=== PATIENT | female | born 1980 | race Two or more races ===

== ENCOUNTER 2020-08-13 17:39 | Emergency (ER) | payer OTHER ==
[2020-08-13 17:46] VITALS: BP 123/62; PULSE 68; TEMP 97.9; BMI 24.3
[2020-08-13 19:07] LABS: BASO % 0.9 % (0-2.0); EOS % 2.6 % (0-4.5); HEMATOCRIT 42.6 % (32.4-45.2); HEMOGLOBIN 14.4 GM/dL (10.7-15.3); LYMPH % 41.1 % (8-40); MCH 31.9 pg (25.7-33.7); MCHC 33.8 g/dl (32.0-36.0); MEAN CELL VOLUME 94.4 fl (80-96); MEAN PLT VOLUME 10.4 fl (7.5-11.1); MONO % 8.2 % (3.8-10.2); NEUT % 47.2 % (42.8-82.8); PLATELET COUNT 260 K/MM3 (134-434); RBC 4.51 M/mm3 (3.60-5.2); RDW 13.2 % (11.6-15.6); WHITE BLOOD COUNT 5.7 K/mm3 (4.0-10.0)
[2020-08-13 19:21] LABS: POTASSIUM 4.2 mmol/L (3.5-5.1)
[2020-08-13 19:23] LABS: ALBUMIN 4.2 g/dl (3.4-5.0); BLOOD UREA NITROGEN 11.7 mg/dL (7-18)
[2020-08-13 19:26] LABS: CREATININE 0.8 mg/dL (0.55-1.3)
[2020-08-13 19:27] LABS: BILIRUBIN,TOTAL 0.5 mg/dL (0.2-1)
[2020-08-13 19:28] LABS: TOT PROT 7.7 g/dl (6.4-8.2)
[2020-08-13 20:19] LABS: HIV INTERPRETATION NEGATIVE (NEGATIVE)
== END 2020-08-13 18:49 | disposition home or self-care (01) ==
LOC: JER 17:39 → JERFT 17:39
DX: S61.032A Puncture wound without foreign body of left thumb without damage to nail, initial encounter (principal)
CPT/HCPCS: 36415; 80053; 85025; 86704; 86803; 87340; 87389; 99283-25

== ENCOUNTER 2020-10-20 21:58 | Emergency (ER) | payer OTHER ==
[2020-10-20 22:30] VITALS: BP 120/74; PULSE 72; TEMP 98.1; BMI 26.6
== END 2020-10-20 22:30 | disposition home or self-care (01) ==
LOC: JER 21:58
DX: Z20.822 Contact with and (suspected) exposure to COVID-19 (principal)
CPT/HCPCS: 99283-25; C9803; U0003; U0005

== ENCOUNTER 2020-11-08 08:14 | Emergency (ER) | payer OTHER ==
[2020-11-08 08:28] VITALS: BP 118/83; PULSE 87; TEMP 98; BMI 24.3
== END 2020-11-08 11:07 | disposition home or self-care (01) ==
LOC: JER 08:14
DX: J06.9 Acute upper respiratory infection, unspecified (principal); Z11.52 Encounter for screening for COVID-19
CPT/HCPCS: 99283-25; C9803; U0003; U0005

== ENCOUNTER 2020-11-25 10:03 | Emergency (ER) | payer OTHER ==
[2020-11-26 10:14] LABS: SARS-CoV-2 NAA Not Detected (Not Detected)
== END 2020-11-25 12:18 | disposition home or self-care (01) ==
LOC: JVIRT 10:03
DX: Z11.52 Encounter for screening for COVID-19 (principal)
CPT/HCPCS: C9803; G2251-GT; U0003; U0005

== ENCOUNTER 2020-11-30 11:19 | Emergency (ER) | payer OTHER | END 2020-11-30 15:13 | disposition home or self-care (01) | LOC: JVIRT 11:19 | DX: Z11.52 Encounter for screening for COVID-19 (principal) | CPT/HCPCS: C9803; G2251-GT; U0003; U0005 ==

== ENCOUNTER 2020-12-28 11:40 | Emergency (ER) | payer OTHER | END 2020-12-28 14:53 | disposition home or self-care (01) | LOC: JVIRT 11:40 | DX: Z11.52 Encounter for screening for COVID-19 (principal) | CPT/HCPCS: C9803; Q3014-GT; U0003; U0005 ==

== ENCOUNTER 2021-03-03 08:21 | Emergency (ER) | payer OTHER ==
[2021-03-03 08:37] VITALS: BMI 30.7
[2021-03-03] MEDS ORDERED: ONDANSETRON 4 MG/2 ML VIAL IVPUSH ONE (08:47)
[2021-03-03] MEDS ORDERED: SODIUM CHLORIDE 0.9% 500 ML INFUS.BAG IV ONE (08:47)
[2021-03-03] MEDS ORDERED: ONDANSETRON 4 MG/2 ML VIAL ONE (09:02)
[2021-03-03 09:38] LABS: BASO % 1.1 % (0-2.0); EOS % 1.8 % (0-4.5); HEMATOCRIT 36.4 % (32.4-45.2); HEMOGLOBIN 12.5 GM/dL (10.7-15.3); LYMPH % 21.8 % (8-40); MCH 31.5 pg (25.7-33.7); MCHC 34.4 g/dl (32.0-36.0); MEAN CELL VOLUME 91.5 fl (80-96); MEAN PLT VOLUME 9.6 fl (7.5-11.1); MONO % 14.1 % (3.8-10.2); NEUT % 61.2 % (42.8-82.8); PLATELET COUNT 231 10^3/uL (134-434); RBC 3.97 M/mm3 (3.60-5.2); RDW 14.4 % (11.6-15.6)
[2021-03-03] MEDS ORDERED: CASIRIVIMAB/IMDEVIMAB 10 ML in SODIUM CHLORIDE 100 ML IVPB ONE (10:13)
[2021-03-03 11:41] LABS: ALBUMIN 3.6 g/dl (3.4-5.0); BLOOD UREA NITROGEN 7.9 mg/dL (7-18); CALCIUM 8.7 mg/dL (8.5-10.1)
[2021-03-03 11:44] LABS: CREATININE 0.8 mg/dL (0.55-1.3)
[2021-03-03 11:46] LABS: BILIRUBIN,TOTAL 0.8 mg/dL (0.2-1); TOT PROT 6.8 g/dl (6.4-8.2)
[2021-03-03 13:19] VITALS: BP 110/68; PULSE 78; TEMP 98.3
== END 2021-03-03 13:15 | disposition home or self-care (01) ==
LOC: JER 08:21
PROC: 3E033GC Introduction of Other Therapeutic Substance into Peripheral Vein, Percutaneous Approach (ICD-10-PCS; principal; 2021-03-03)
DX: U07.1 COVID-19 (principal)
CPT/HCPCS: 36415; 71046-TC-FY; 80053; 84703; 85025; 99284-25; C9803; M0240; Q0240; U0003; U0005

== ENCOUNTER 2021-04-08 13:21 | Emergency (ER) | payer BC, OTHER | END 2021-04-08 14:16 | disposition home or self-care (01) | LOC: JVIRT 13:21 | DX: Z11.52 Encounter for screening for COVID-19 (principal) | CPT/HCPCS: C9803; Q3014-GT; U0003; U0005 ==

== ENCOUNTER 2021-05-11 14:27 | Emergency (ER) | payer BC | END 2021-05-11 14:38 | disposition home or self-care (01) | LOC: JVIRT 14:27 | DX: Z11.52 Encounter for screening for COVID-19 (principal) | CPT/HCPCS: C9803; Q3014-GT; U0003; U0005 ==

== ENCOUNTER 2021-07-05 08:18 | Emergency (ER) | payer BC | END 2021-07-05 09:50 | disposition home or self-care (01) | LOC: JVIRT 08:18 | DX: U07.1 COVID-19 (principal); Z11.52 Encounter for screening for COVID-19 | CPT/HCPCS: C9803-CS; Q3014-GT; U0003; U0005 ==

== ENCOUNTER 2021-07-11 09:33 | Emergency (ER) | payer BC | END 2021-07-11 13:34 | disposition home or self-care (01) | LOC: JVIRT 09:33 | DX: U07.1 COVID-19 (principal) | CPT/HCPCS: C9803; Q3014-GT; U0003; U0005 ==

== ENCOUNTER 2022-12-23 07:22 | Emergency (ER) | payer BC, OTHER ==
[2022-12-23 07:43] VITALS: BP 112/68; PULSE 85; RESP 15; TEMP 97.8; BMI 25.5
== END 2022-12-23 08:54 | disposition home or self-care (01) ==
LOC: JERFT 07:22 → JER 07:22 → JERFT 08:54
DX: S59.902A Unspecified injury of left elbow, initial encounter (principal); M25.522 Pain in left elbow; V86.95XA Unspecified occupant of 3- or 4- wheeled all-terrain vehicle (ATV) injured in nontraffic accident, initial encounter
CPT/HCPCS: 73070-TC-LT-FY; 99283-25

== ENCOUNTER 2023-01-12 20:41 | Emergency (ER) | payer OTHER ==
[2023-01-12 20:47] VITALS: BP 123/78; PULSE 87; RESP 19; TEMP 98.6; BMI 24.3
== END 2023-01-12 21:02 | disposition home or self-care (01) ==
LOC: JERFT 20:41
DX: H92.01 Otalgia, right ear (principal); H60.501 Unspecified acute noninfective otitis externa, right ear
CPT/HCPCS: 99283-25